=== PATIENT | female | born 1970 | race Caucasian/White ===

== ENCOUNTER 2022-03-20 09:09 | Emergency (ER) | payer MEDICAID ==
[~2022-03-20] VITALS: Ht 162.6 cm; Wt 82.7 kg
[2022-03-20 09:17] VITALS: BP 135/45
--- NOTE | 2022-03-20 09:23 | NUR ---
WALKED IN C/O R HEEL PAIN ONSET 3MO. STATES CHRONIC. DENIES INJURY OR FALL. DENIES DM. DENIES ANY HX. AAOX3, AMBULATORY, VSS, URINE COLLECTED. ROM INTACT, DENIES ANY NUMBNESS OR TINGLING, NO OPEN WOUND, NO BRUISING
[2022-03-20] MEDS ORDERED: NAPR1TAB6 PO (10:56)
[2022-03-20 11:11] VITALS: BP 131/64
== END 2022-03-20 11:11 | disposition home or self-care (01) ==
LOC: MED 09:09
DX: M72.2 Plantar fascial fibromatosis (principal); Z79.899 Other long term (current) drug therapy
CPT/HCPCS: 99282